=== PATIENT | male | born 1985 | race Caucasian/White ===

== ENCOUNTER 2017-12-15 13:53 | Emergency (ER) | payer OTHER ==
[~2017-12-15] VITALS: Ht 172.7 cm; Wt 80.7 kg
[~2017-12-15 13:53] MED LIST: ALBUTEROL2.5 MG/3 M INH/SOL; ALLEGRA-D 24 H1 EACH PO; DELTASONE20 MG PO; PROAIR HFA8.5 GM INH; ZYRTEC-D TABLE1 EACH PO
[2017-12-15 14:03] VITALS: BP 129/70
[2017-12-17] MEDS ORDERED: DOXYCYCLINE HY100 M2 PO (12:54)
[2017-12-17] MEDS ORDERED: MONTELUKAST SOD10 M1 PO (12:55)
[2017-12-17] MEDS ORDERED: NASAL DECONGEST30 M2 PO (13:16)
== END 2017-12-15 15:32 | disposition admitted as inpatient to this hospital (09) ==
LOC: ERH 13:53
DX: R09.81 Nasal congestion (principal)

== ENCOUNTER 2017-12-24 06:53 | Emergency (ER) | payer OTHER ==
[~2017-12-24] VITALS: Ht 167.6 cm; Wt 80.7 kg
[~2017-12-24 06:53] MED LIST changes: +DOXYCYCLINE HY100 M2 PO; +MONTELUKAST SOD10 M1 PO; +NASAL DECONGEST30 M2 PO
[2017-12-24 07:14] VITALS: BP 128/66
[2017-12-24] MEDS ORDERED: XANAX0.25 M1 PO (07:58)
--- NOTE | 2017-12-24 07:59 | ED GENERAL ADULT ---
See Addendum History of Present Illness General Chief Complaint: General Adult Stated Complaint: "ANXIETY" PER PT Source: patient Exam Limitations: no limitations Vital Signs & Intake/Output Vital Signs & Intake/Output Vital Signs Date Time Temp Pulse Resp B/P B/P Pulse O2 O2 Flow FiO2 Mean Ox Delivery Rate 12/24 0714 97.9 91 20 128/66 100 Room Air Allergies Uncoded Allergies: SEASONAL ALLERGIES (Mild, NASAL CONGESTION 04/21/17) Reconcile Medications Albuterol Sulfate (Proair Hfa) 90 MCG HFA.AER.AD 2 PUF INH Q4-6 PRN PRN dyspnea Albuterol Sulfate 2.5 MG/3 ML (0.083 %) VIAL.NEB 1 Vial INH/SHAZIA Q4P PRN dyspnea Alprazolam (Xanax) 0.25 MG TABLET 1-2 TAB PO BIDP PRN anxiety Doxycycline Hyclate 100 MG CAPSULE 1 CAP PO BID SINUS INFECTION (Reported) Fexofenadine/Pseudoephedrine (Sravanthi-D 24 Hour Tablet) 180 MG-240 MG TAB.ER.24H 1 TAB PO DAILY ALLERGIES (Reported) Montelukast Sodium 10 MG TABLET 1 TAB PO DAILY ALLERGIES (Reported) Pseudoephedrine HCl (Nasal Decongestant) 30 MG CAPSULE 1-2 CAP PO Q6 PRN CONGESTION Triage Note: PT STATES PMD GAVE HIM BUSPIRONE 7.5 MG DAILY FOR ANIETY. STATES HE FILLED RX ON 12/18/17 AND IT'S NOT WORKING. ALSO GAVE TRAZODONE FOR SLEEP AND IS UNABLE TO SLEEP AT NIGHT Triage Nurses Notes Reviewed? yes HPI: Patient is a 32-year-old male with history of anxiety who presents today for insomnia which he believes is secondary secondary to his anxiety. He has never seen anybody for this diagnosis, and does not currently have a therapist. He tried to get into see his primary physician to discuss different prescription medications too assist him in sleep, as the trazodone which the recently prescribed has been ineffective. He is also taking buspirone with some effect. I evaluated this patient last week for sinus issues and a cough after using a glass sander belt, with negative chest x-ray and other workup. He has been seen in this emergency department multiple times over the past month for various complaints, many seemingly related to his as of yet undiagnosed generalized anxiety disorder. Take Past History Travel History Traveled to [place] past 21 day No Medical History Any Pertinent Medical History? see below for history Neurological: NONE EENT: NONE Cardiovascular: NONE Respiratory: NONE Gastrointestinal: NONE Hepatic: NONE Renal: NONE Musculoskeletal: NONE Psychiatric: anxiety Endocrine: NONE Surgical History Surgical History: non-contributory Psychosocial History What is your primary language Icelandic Tobacco Use: Never used ETOH Use: occasional use Illicit Drug Use: denies illicit drug use Family History Hx Contributory? No Review of Systems Review of Systems Constitutional: Reports: see HPI. EENTM: Reports: no symptoms. Respiratory: Reports: no symptoms. Cardiovascular: Reports: no symptoms. GI: Reports: no symptoms. Genitourinary: Reports: no symptoms. Musculoskeletal: Reports: no symptoms. Skin: Reports: no symptoms. Neurological/Psychological: Reports: see HPI, anxiety. Denies: cognitive dysfunction, depressed, emotional problems, numbness, paresthesia. Hematologic/Endocrine: Reports: no symptoms. Immunologic/Allergic: Reports: no symptoms. All Other Systems: Reviewed and Negative Physical Exam Physical Exam General Appearance: well developed/nourished, no apparent distress, alert, awake , anxious Comments: HEENT: Inspection of the head reveals a normocephalic cranium with no signs of trauma. Ophtho: Extraocular muscles are intact. The sclera are noninjected, and there is no obvious discharge. Neck: No signs of trauma or asymmetry to the neck. Respiratory: The patient exhibits no signs of labored breathing. Cardiac: Non-tachycardic. GI: No gross abdominal distention. : Deferred Neuro: The patient is oriented to person, place, time, and situation, with no obvious focal motor deficits. Cranial nerves II through XII are intact, and gait is normal. Behavioral: Extremely anxious on examination, worried about his insomnia, and self identifying anxiety as a debilitating yet undiagnosed long time issue for him. Denies any suicidality or homicidality whatsoever. Dermatologic: Dermatologic examination reveals no obvious rashes or exanthems. Core Measures ACS in differential dx? No CVA/TIA Diagnosis: No Sepsis Present: No Sepsis Focused Exam Completed? No Progress Differential Diagnoses I considered the following diagnoses in my evaluation of the patient: Generalized anxiety disorder, stress disorder, suicidality, organic medical disorder Plan of Care: Patient's medical screening examination was negative, except for obvious anxiety on psychiatric interview. He denies any suicidality or depression whatsoever, but states that his anxiety has been pervasive and resting from sleeping. He has recently tried trazodone without success, and requested prescription for something else given that he has had no success in getting in to see his PCP lately. He has never seen a therapist. I offered to prescribe him a very short course of alprazolam, and sent a prescription for 0.25 mg twice daily #8 tabs to his pharmacy. I also encouraged him to see his PCP for referral to a therapist to gain better control of his anxiety. Discharged home in stable condition. Initial ED EKG: none Departure Departure Time of Disposition: 753 Disposition: HOME OR SELF CARE Condition: Stable Clinical Impression Primary Impression: Anxiety Referrals: David Mckeon MD (PCP/Family) Additional Instructions: Please use the alprazolam (Xanax) prescription that we sent to your pharmacy in place of the trazodone to assist you in sleeping. The prescription we wrote is brief, because we recommend that you see Dr. Mckeon to discuss further prescriptions, and as we discussed, to talk about referral to a therapist. This will be the best way going forward to gain control of your anxiety. Departure Forms: Customer Survey General Discharge Information Prescriptions: Current Visit Scripts Alprazolam (Xanax) 1-2 TAB PO BIDP PRN anxiety #8 TAB Critical Care Note Critical Care Note Critical Care Time: non-applicable
[2017-12-24] MEDS ORDERED: AMBIEN10 M1 PO (11:49)
== END 2017-12-24 08:03 ==
LOC: ERH 06:53
DX: F41.9 Anxiety disorder, unspecified (principal)

== ENCOUNTER 2017-12-29 09:37 | Emergency (ER) | payer OTHER ==
[~2017-12-29] VITALS: Ht 167.6 cm; Wt 80.7 kg
[~2017-12-29 09:37] MED LIST changes: +AMBIEN10 M1 PO; +XANAX0.25 M1 PO
[2017-12-29] MEDS ORDERED: METOPROLOL SUCC25 M1 PO (13:17)
--- NOTE | 2017-12-29 13:41 | ED GENERAL ADULT ---
History of Present Illness General Chief Complaint: General Adult Stated Complaint: ANXIETY Source: patient Exam Limitations: no limitations Vital Signs & Intake/Output Vital Signs & Intake/Output Vital Signs Date Time Temp Pulse Resp B/P B/P Pulse O2 O2 Flow FiO2 Mean Ox Delivery Rate 12/29 1530 98.6 80 18 121/78 97 Room Air 12/29 1300 99.0 84 18 118/70 98 Room Air 12/29 0947 98.7 82 18 122/82 97 Room Air Allergies Coded Allergies: prednisone (Mild, INCREASED HEART RATE 12/27/17) Uncoded Allergies: SEASONAL ALLERGIES (Mild, NASAL CONGESTION 04/21/17) Reconcile Medications Albuterol Sulfate (Proair Hfa) 90 MCG HFA.AER.AD 2 PUF INH Q4-6 PRN PRN dyspnea Albuterol Sulfate 2.5 MG/3 ML (0.083 %) VIAL.NEB 1 Vial INH/SHAZIA Q4P PRN dyspnea Alprazolam (Xanax) 0.25 MG TABLET 1-2 TAB PO BIDP PRN anxiety Fexofenadine/Pseudoephedrine (Sravanthi-D 24 Hour Tablet) 180 MG-240 MG TAB.ER.24H 1 TAB PO DAILY ALLERGIES (Reported) Metoprolol Succinate 25 MG TAB 1 TAB PO DAILY HEART (Reported) Montelukast Sodium 10 MG TABLET 1 TAB PO DAILY ALLERGIES (Reported) Pseudoephedrine HCl (Nasal Decongestant) 30 MG CAPSULE 1-2 CAP PO Q6 PRN CONGESTION Temazepam (Restoril) 7.5 MG CAPSULE 1 CAP PO QPM Insomnia Triage Note: 32 YEAR OLD MALE TO ER WITH COMPLAINTS OF INCREASED ANXIETY A ND UNABLE TO SLEEP FOR THE PAST 4 NIGHTS. DENIES SI/HI . HAS BEEN SEEING HIS MD WHO PUT HIM ON LEXAPRO AND BUSPAR AND STATES THAT THE INSOMNIA HAS BECOME WORSE. Triage Nurses Notes Reviewed? yes HPI: 32 yo M PMH Depression, Anxiety presenting with anxiety, insomnia. Per patient he has a long history of anxiety, taking Lexapro. Worsening anxiety for the last 2-3 weeks, associated difficulty sleeping (only getting 2-4 hrs per night), has tried benadryl and trazodone without relief, able to get some sleep with xanax, but patient ran out. Denies fevers, chills, chest pain, palpitations, SOB, LE swelling or pain, abdominal Sx, urinary Sx, headache, neck pain or focal neurologic Sx. Denies SI, HI, plan, intent. Denies EtOH or illicit drug use. (Austin Jones MD) Past History Travel History Traveled to [place] past 21 day No Medical History Any Pertinent Medical History? see below for history Neurological: NONE EENT: NONE Cardiovascular: NONE Respiratory: NONE Gastrointestinal: NONE Hepatic: NONE Renal: NONE Musculoskeletal: NONE Psychiatric: anxiety Endocrine: NONE Surgical History Surgical History: non-contributory Psychosocial History What is your primary language Brazilian Tobacco Use: Never used ETOH Use: denies use Illicit Drug Use: denies illicit drug use Family History Hx Contributory? Yes (Austin Jones MD) Review of Systems Review of Systems Constitutional: Reports: no symptoms. EENTM: Reports: no symptoms. Respiratory: Reports: no symptoms. Cardiovascular: Reports: no symptoms. GI: Reports: no symptoms. Genitourinary: Reports: no symptoms. Musculoskeletal: Reports: no symptoms. Skin: Reports: no symptoms. Neurological/Psychological: Reports: see HPI. Hematologic/Endocrine: Reports: no symptoms. Immunologic/Allergic: Reports: no symptoms. All Other Systems: Reviewed and Negative (Austin Jones MD) Physical Exam Physical Exam General Appearance: well developed/nourished, no apparent distress, awake Head: atraumatic Eyes: Bilateral: PERRL, EOMI. Ears, Nose, Throat: moist mucus membranes Neck: normal inspection, full range of motion Respiratory: no respiratory distress, lungs clear Cardiovascular: regular rate/rhythm, normal peripheral pulses Gastrointestinal: soft, non-tender Core Measures ACS in differential dx? No CVA/TIA Diagnosis: No Sepsis Present: No Sepsis Focused Exam Completed? No (Austin Jones MD) Progress Differential Diagnoses I considered the following diagnoses in my evaluation of the patient: [ Anxiety, low concern for infectious, metabolic, or toxic precipitants] Plan of Care: Orders Procedure Date/time Status URINE DRUG SCREEN FOR ER ONLY 12/29 1240 Complete Laboratory Tests 12/29/17 1242: Urine Opiates Screen < 100, Methadone Screen < 40, Barbiturate Screen < 60, Ur Phencyclidine Scrn < 6.00, Amphetamines Screen 165, U Benzodiazepines Scrn 321 H, Urine Cocaine Screen < 50, Urine Cannabis Screen < 5.00 Physician MDM: 32 yo M PMH Depression, Anxiety presenting with anxiety, insomnia. VSS, exam as above. DDx: Psychiatric pathology, low concern for metabolic, toxic, or infectious precipitants. Given Xanax x 2 with relief of anxiety, patient able to sleep 1-2 hrs in ED. Discharged with non-medicated ride home, given short course of temazepam for sleep, plan for close f/u with PMD for re-evaluation and ongoing management of chronic anxiety. Initial ED EKG: none (Karen KLEIN,[place]) Departure Departure Disposition: HOME OR SELF CARE Condition: Stable Clinical Impression Primary Impression: Anxiety Secondary Impressions: Insomnia Referrals: David Mckeon MD (PCP/Family) Additional Instructions: Trial Temazepam for sleep. Follow up with your primary care physician as soon as possible for further management of anxiety and insomnia. Return to the ED for any new, worsening, or concerning symptoms. Departure Forms: Customer Survey General Discharge Information Prescriptions: Current Visit Scripts Temazepam (Restoril) 1 CAP PO QPM #8 CAP (Karen KLEIN,[place]) Resident Co-Sign Statement Statement: ED Attending supervision documentation- [] I saw and evaluated the patient. I have also reviewed all the pertinent lab results and diagnostic results. I agree with the findings and the plan of care as documented in the Resident's documentation. [x] I have reviewed the ED Record and agree with the Resident's documentation. [] Additions or exceptions (if any) to the Resident's note and plan are summarized below: [] (Ki Nelson DO) Critical Care Note Critical Care Note Critical Care Time: non-applicable (Karen KLEIN,[place])
[2017-12-29] MEDS ORDERED: RESTORIL7.5 M1 PO (14:11)
[2017-12-29 15:30] VITALS: BP 121/78
== END 2017-12-29 15:31 ==
LOC: ERH 09:37
DX: F41.9 Anxiety disorder, unspecified (principal); G47.00 Insomnia, unspecified
CPT/HCPCS: 80307